=== PATIENT | male | born 1955 | race Caucasian/White ===

== ENCOUNTER 2019-01-27 19:17 | Emergency (ER) | payer OTHER ==
[~2019-01-27] VITALS: Ht 177.8 cm; Wt 97.6 kg
[2019-01-27] MEDS ORDERED: BLOOD PRESSURE (19:34)
[2019-01-27] MEDS ORDERED: METF500T27 PO (19:34)
[2019-01-27] MEDS ORDERED: ASPI-496 PO (19:37)
[2019-01-27] MEDS ORDERED: PROSTATE MEDICATION (19:37)
--- NOTE | 2019-01-27 19:39 | NUR ---
PT. C/O BLEEDING FROM RECTUM X 2 WEEKS. DENIES PAIN. REPORTS BRIGHT RED BLOOD IN STOOL. MONITORS APPLIED, SIDERAILS UP X2, CALL LIGHT WITHIN REACH
[2019-01-27 19:41] LABS: BASOPHILS # (AUTO) 0.05 x10^3/uL (0-0.1); BASOPHILS % (AUTO) 1 % (0-1); EOSINOPHILS # (AUTO) 0.35 x10^3/uL (0-0.4); EOSINOPHILS % (AUTO) 4 % (1-7); LYMPHOCYTES # (AUTO) 2.96 x10^3/uL (1-3.4); LYMPHOCYTES % (AUTO) 30 % (22-44); MD NO; MEAN CORPUSCULAR HEMOGLOBIN 32.9 pg (27.5-34.5); MEAN CORPUSCULAR HGB CONC 33.5 g/dL (33.2-36.2); MEAN CORPUSCULAR VOLUME 98.3 fL (81-97); MEAN PLATELET VOLUME 7.7 fL (7.4-10.4); MONOCYTES # (AUTO) 0.72 x10^3/uL (0.2-0.8); MONOCYTES % (AUTO) 7 % (2-9); NEUTROPHILS # (AUTO) 5.94 x10^3/uL (1.8-6.8); NEUTROPHILS % (AUTO) 59 % (42-75); PLATELET COUNT 271 x10^3/uL (130-400); RED BLOOD COUNT 4.48 x10^6/uL (4.38-5.82)
[2019-01-27 19:55] LABS: ALBUMIN 4.2 g/dL (3.4-5.0); ANION GAP 9 mmol/L (5-15); CALCIUM 9.4 mg/dL (8.5-10.1); CHLORIDE 106 mmol/L (98-107)
--- NOTE | 2019-01-27 20:05 | NUR ---
erp at bedside for eval. pt resting calmly, monitors in place, call light within reach
[2019-01-27 21:06] VITALS: BP 99/59
--- NOTE | 2019-01-27 21:06 | NUR ---
PT RESTING CALMLY, MONITORS IN PLACE, CALL LIGHT WITHIN REACH, DENIES NEEDS
== END 2019-01-27 21:37 | disposition home or self-care (01) ==
LOC: ED 21:00
DX: K62.5 Hemorrhage of anus and rectum (principal); K64.4 Residual hemorrhoidal skin tags; R42 Dizziness and giddiness; E11.9 Type 2 diabetes mellitus without complications
CPT/HCPCS: 36415; 80048; 82040; 85025; 86850; 86900; 93005; 99284